=== PATIENT | female | born 1950 | race Caucasian/White ===

== ENCOUNTER 2021-02-11 05:34 | Outpatient (CLI) | payer OTHER ==
[~2021-02-11] VITALS: Ht 162.6 cm; Wt 70.5 kg
[2021-02-11] MEDS ORDERED: LIDO1ADH66 TP (16:28)
[2021-02-11] MEDS ORDERED: BIOT5000 PO (16:28)
[2021-02-11] MEDS ORDERED: GABA-486 PO (16:28)
[2021-02-11] MEDS ORDERED: CHOL10008 PO (16:28)
[2021-02-11] MEDS ORDERED: VITA1TAB33 PO (16:28)
[2021-02-11] MEDS ORDERED: ZPR40C PO (16:28)
[2021-02-11] MEDS ORDERED: [UNRECOGNIZED DRUG - CODE] PO (16:28)
[2021-02-11] MEDS ORDERED: ORLI60CA2 PO (16:28)
[2021-02-11] MEDS ORDERED: VNL75T PO (16:28)
[2021-02-11] MEDS ORDERED: ROPINROLE (16:36)
[2021-02-11] MEDS ORDERED: TRZ50T PO (16:36)
[2021-02-11] MEDS ORDERED: MULT-593 PO (16:36)
[2021-02-11] MEDS ORDERED: MELA3TAB52 PO (16:36)
== END 2021-02-11 16:46 | disposition home or self-care (01) ==
LOC: PREOP 05:34
PROVIDERS: ATTEND Urology
DX: Z01.818 Encounter for other preprocedural examination (principal)

== ENCOUNTER 2021-02-18 05:56 | Day surgery (SDC) | payer OTHER ==
[2021-02-18] VITALS (13 sets, daily range): BP systolic 92–133; BP diastolic 51–75
[~2021-02-18] VITALS: Ht 162.6 cm; Wt 70.5 kg
[~2021-02-18 05:56] MED LIST: BIOT5000 PO; CHOL10008 PO; GABA-486 PO; LIDO1ADH66 TP; MELA3TAB52 PO; MULT-593 PO; ORLI60CA2 PO; ROPINROLE; TRZ50T PO; VITA1TAB33 PO; VNL75T PO; ZPR40C PO; [UNRECOGNIZED DRUG - CODE] PO
[2021-02-18] MEDS ORDERED: LACTATED RINGERS 1,000 ML IV PRN (06:15)
[2021-02-18] MEDS ORDERED: cefTRIAXone 1,000 MG in WATER (STERILE) FOR INJECTION 10 ML IV ONE (06:15)
[2021-02-18] MEDS ORDERED: SEVOFLURANE (ULTANE) 15 ML INHAL SOLN ONE (06:58)
[2021-02-18] MEDS ORDERED: proPOfol 200 MG/20 ML (DIPRIVAN) VIAL IV ONE (06:58)
[2021-02-18] MEDS ORDERED: LIDOCAINE PF 2% 5 ML (XYLOCAINE) VIAL ONE (06:58)
[2021-02-18] MEDS ORDERED: fentaNYL INJ 100 MCG/2 ML AMP ONE (06:58)
[2021-02-18] MEDS ORDERED: MIDAZOLAM 2 MG/2 ML (VERSED) VIAL ONE (06:59)
[2021-02-18] MEDS ORDERED: LIDOCAINE/EPI 1%-1:100,000 (XYLOCAINE) 20ML ONE (07:24)
[2021-02-18] MEDS ORDERED: ESTRADIOL VAGINAL CREAM 42.5 GM (ESTRACE) VG ONE (07:24)
--- NOTE | 2021-02-18 07:25 | Progress Note-Pre Operative ---
Pre-Operative Progress Note H&P Reviewed The H&P was reviewed, patient examined and no changes noted. Date Seen by Provider: Feb 18, 2021 Time Seen by Provider: 07:24 Date H&P Reviewed: Feb 18, 2021 Time H&P Reviewed: 07:24 Pre-Operative Diagnosis: INCONTINENCE, OAB, AND ISD JULIAN MCGILL MD Feb 18, 2021 07:25
--- NOTE | 2021-02-18 07:29 | Progress Note-Post Operative ---
Post-Operative Progess Note Surgeon (s)/Weatherization Specialist (s) Surgeon JULIAN MCGILL MD Weatherization Specialist: NONE Pre-Operative Diagnosis INCONTINENCE, OAB, AND ISD Post-Operative Diagnosis SAME Procedure & Operative Findings Date of Procedure 02/18/21 Procedure Performed/Findings PVS AND CYSTO Anesthesia Type GENERAL Estimated Blood Loss Estimated blood loss (mL): NEGLIGIBLE Specimens/Packing Specimens Removed NONE Packin GM ESTRACE VAG PACK JULIAN MCGILL MD Feb 18, 2021 07:29
[2021-02-18] MEDS ORDERED: LACTATED RINGERS 1,000 ML IV SCH (07:30)
[2021-02-18] MEDS ORDERED: ONDANSETRON 4 MG/2 ML (SDV) Z0FRAN ONE (07:48)
--- NOTE | 2021-02-18 08:37 | Anesthesia-General Post-Op ---
General Patient Condition Mental Status/LOC: Same as Preop Cardiovascular: Satisfactory Nausea/Vomiting: Absent Respiratory: Satisfactory Pain: Controlled Complications: Absent Post Op Complications Complications None Follow Up Care/Instructions Patient Instructions None needed. Anesthesia/Patient Condition Patient Condition Patient is doing well, no complaints, stable vital signs, no apparent adverse anesthesia problems. No complications reported per nursing. NOAH MOBLEY CRNA Feb 18, 2021 08:37
[2021-02-18] MEDS ORDERED: ONDANSETRON 4 MG/2 ML (SDV) Z0FRAN IVP PRN (08:45)
[2021-02-18] MEDS ORDERED: morphine INJ 10 MG/ML 1ML (SYR OR VIAL) IVP ONE (08:45)
[2021-02-18] MEDS ORDERED: PATIENT MAY USE OWN MEDS, ALL MC SCH (13:30)
[2021-02-18] MEDS ORDERED: GABAPENTIN 100 MG (NEURONTIN) CAP PO SCH (13:30)
--- NOTE | 2021-02-18 14:43 | OPERATIVE REPORT ---
DATE OF SERVICE: 02/18/2021 PREOPERATIVE DIAGNOSES: Urinary incontinence, overactive bladder and ISD. POSTOPERATIVE DIAGNOSES: Urinary incontinence, overactive bladder and ISD. OPERATION PERFORMED: Pubovaginal sling and cystoscopy. SURGEON: Power Mcgill MD ANESTHESIA: General. COMPLICATIONS: None. DESCRIPTION OF PROCEDURE: Under satisfactory general anesthesia, the patient in extended lithotomy position, genitalia were prepped and draped in the usual sterile fashion with separate vaginal prep. Del Real catheter was inserted, draining clear urine. It was noted that the anterior wall vaginal epithelium was pretty thin. I went ahead and injected lidocaine with epinephrine into the anterior vaginal wall for hydrodissection. I made a vertical incision about 2 cm proximal to the meatus. Dissection was carried on both sides toward the pubic arch. I went ahead and passed the Desara sling introducer on both sides using the described technique. The sling was sitting nicely under the midurethra with no tension, no twist, passage of a hemostat easily between it and the underlying tissue. I removed the Del Real catheter to perform cystoscopy to confirm the integrity of the bladder, ureteral orifices and urethra and presence of the sling under the mid urethra. I left the bladder half full, removed the cystoscope, performed a manual Valsalva maneuver that was negative. I reinserted the Del Real catheter draining clear urine. I went ahead and closed the vaginal epithelium with a running 2-0 Vicryl. A 2 grams Estrace vaginal pack was inserted. The Del Real catheter was left to dependent drainage, returned very clear. Estimated blood loss negligible, none of which was replaced. The patient tolerated the procedure and anesthesia well and was sent to recovery room in stable condition. PLAN: We will probably leave the Del Real catheter for few days to allow good healing and because of the thinning of the bladder area and the vaginal epithelium. This was explained to the and later on to the patient. Job ID: [id number] DocumentID: [id number] Dictated Date: 02/18/2021 10:10:18 Drop Man Date: 02/18/2021 14:42:53 Dictated By: POWER MCGILL MD
[2021-02-18] MEDS: PSYLLIUM POWDER (METAMUCIL) 5.8 GM PACKET PO SCH (16:08)
[2021-02-18] MEDS: ZIPRASIDONE 20 MG (GEODON) CAP PO SCH (18:59)
[2021-02-18] MEDS ORDERED: NON-FORMULARY MEDICATION 1 EA EA (Melatonin 6 MG) PO SCH (21:00)
[2021-02-18] MEDS ORDERED: MELATONIN 3 MG TABLET PO SCH (21:00)
[2021-02-18] MEDS ORDERED: ZIPRASIDONE 40 MG (GEODON) CAP PO SCH (21:00)
[2021-02-18] MEDS ORDERED: traZODone 50 MG (DESYREL) TAB PO SCH (21:00)
[2021-02-18] MEDS ORDERED: GABAPENTIN 400 MG (NEURONTIN) CAP PO SCH (21:00)
[2021-02-19 03:35] VITALS: BP 111/55
[2021-02-19 08:00] VITALS: BP 128/58
[2021-02-19] MEDS: PSYLLIUM POWDER (METAMUCIL) 5.8 GM PACKET PO SCH (08:15)
[2021-02-19] MEDS: ZIPRASIDONE 20 MG (GEODON) CAP PO SCH (08:15)
--- NOTE | 2021-02-19 08:58 | Progress Note - Urology ---
Progress Note-Urology Progress Notes/Assess & Plan Progress/Assessment & Plan DOING AND FEELING WELL. VSS. URINE LUCILLE CLEAR. DC WITH INSTRUCTIONS Final Diagnosis INCONTINENCE, OAB, AND ISD JULIAN MCGILL MD Feb 19, 2021 08:58
[2021-02-19] MEDS ORDERED: ZIPRASIDONE 40 MG (GEODON) CAP PO SCH (09:00)
[2021-02-19] MEDS ORDERED: GABAPENTIN 100 MG (NEURONTIN) CAP PO SCH (09:00)
--- NOTE | 2021-02-19 09:02 | Discharge Inst-Urology ---
Discharge Inst-Urology Reconcile Patient Problems Problems Reviewed?: Yes Final Diagnosis INCONTINENCE, OAB, AND ISD Patient Instructions/Follow Up Plan/Assessment/Instructions Please make appointment to been seen in office in 1 week. Rest till then Discharge with call and leg bag day time and large bag night time with instructions Please call Rx fo Cipro 500 bid for 1 week Increase oral fluids for 48 hours and then as needed. Diet as tolerated. If questions or concerns contact your physician Or seek help at emergency department. JULIAN MCGILL MD Feb 19, 2021 09:02
[2021-02-19] MEDS ORDERED: CIPR-225 PO (09:59)
[2021-02-19 11:55] VITALS: BP 128/58
== END 2021-02-19 11:55 | disposition home or self-care (01) ==
LOC: SDC 05:56 → EDSTATUS 08:00 → WS 11:02 → SDC 02-19 11:55
PROVIDERS: ATTEND Urology
DX: R32 Unspecified urinary incontinence (principal); N32.81 Overactive bladder; N36.42 Intrinsic sphincter deficiency (ISD); N18.9 Chronic kidney disease, unspecified; Z79.899 Other long term (current) drug therapy
CPT/HCPCS: 87081; 94664